=== PATIENT | male | born 1950 | race Caucasian/White ===

== ENCOUNTER 2017-08-21 12:00 | Inpatient (IN) | payer OTHER ==
[2017-08-21] MEDS: TORADOL 30 MG VIAL IVP PRN (14:28)
[2017-08-21] MEDS: SOLU-Medrol 40 MG VIAL IVP SCH ×2 (14:28→21:00)
[2017-08-21 14:31] LABS: BASOPHILS # (AUTO) 0.1 X10^3/uL (0.0-0.1); BASOPHILS % (AUTO) 0.4 % (0.2-1.0); EOSINOPHILS % (AUTO) 0.2 % (0.9-2.9); HEMATOCRIT 45.3 % (42.0-54.0); HEMOGLOBIN 16.1 g/dL (13.5-18.0); LYMPHOCYTES % (AUTO) 5.7 % (21.0-51.0); MEAN CORPUSCULAR HEMOGLOBIN 33.3 pg (27.0-34.0); MEAN CORPUSCULAR HGB CONC 35.7 g/dL (33.0-35.0); MEAN CORPUSCULAR VOLUME 93.3 fL (80.0-100.0); MEAN PLATELET VOLUME 7.1 fL (7.4-11.0); MONOCYTES # (AUTO) 0.9 x10^3/uL (0.3-0.8); MONOCYTES % (AUTO) 5.1 % (0.0-13.0); NEUTROPHILS # (AUTO) 15.6 x10^3/uL (2.2-4.8); NEUTROPHILS % (AUTO) 88.6 % (42.0-75.0); PLATELET COUNT 319 X10^3/uL (150.0-450.0); RED BLOOD COUNT 4.85 X10^6/uL (4.7-6.0); WHITE BLOOD COUNT 17.6 X10^3/uL (3.6-10.0)
[2017-08-21 15:09] LABS: ALANINE AMINOTRANSFERASE 63 Units/L (12-78); ALBUMIN 3.2 g/dL (3.4-5.0); ALKALINE PHOSPHATASE 44 Units/L (46-116); ASPARTATE AMINO TRANSFERASE 24 Units/L (15-37); BLOOD UREA NITROGEN 36 mg/dL (7-18); CALCIUM 8.8 mg/dL (8.5-10.1); CARBON DIOXIDE 30.4 mmol/L (21-32); CHLORIDE 99 mmol/L (98-107); COR CA(FOR HYPOALB) 9.4 mg/dL (8.5-10.1); COR NA(FOR HYPERGLY) 138 mmol/L (136-145); CREATININE 1.32 mg/dL (0.70-1.30); FREE T4 (FREE THYROXINE) 1.17 ng/dL (0.76-1.46); SODIUM 135 mmol/L (136-145); eGFR BLACK RACES > 60 (>60); eGFR NON BLACK RACES 57 (>60)
--- NOTE | 2017-08-21 15:34 | RAD ---
Examination: AP and lateral chest History: Pain, prostate cancer Comparison reference: None Findings: Normal heart size, clear lungs and pleural spaces. There is no evidence for CHF, pneumonia or metastatic disease. Impression: No acute chest abnormality demonstrated. Reported By:
[2017-08-21 15:46] LABS: TSH (3RD GENERATION) 0.868 uIU/mL (0.358-3.74)
--- NOTE | 2017-08-21 15:50 | CT ---
HISTORY: Back pain, right radiculopathy Study: CT lumbar spine without contrast Comparison: None Technique: Axial noncontrast images with coronal and sagittal reformats. Dose reduction procedures we re used with mA/kv adjusted for body size. Findings: The alignment is normal. The vertebral bodies are of average height. No compression fractures are ulysses ntified. The pedicles, spinous processes, and posterior elements are intact with the exception of karo ateral spondylolysis at L5 without significant spondylolisthesis. The SI joints and sacrum as visuali zed are intact. The disc levels are as follows. L1-2 level: No evidence for compressive disc disease. The neural foramina are patent. The joints are normal. L2-3 level: No evidence for compressive disc disease. The neural foramina are patent. The joints are normal. L3-4 level: Mild concentric disc bulging contributes along with mild facet arthropathy to mild latera l recess narrowing bilaterally. L4-5 level: There is mild concentric disc bulging present. However it extends somewhat more to the ri ght than the left where it contributes to foraminal and lateral recess narrowing of a moderate degree . There is mild lateral recess narrowing on the left. L5-S1 level: There is bilateral spondylolysis without significant spondylolisthesis. There is concent sarina disc bulging which contributes along with spondylitic change to lateral recess and foraminal narr owing bilaterally. IMPRESSION: As above Reported By:
[2017-08-21 16:10] LABS: ERYTHROCYTE SEDIMENTATION RATE 18 MM/HOUR (0-15)
[2017-08-21 16:25] VITALS: BMI 30.8
[2017-08-21] MEDS: DILAUDID INJ IVP PRN (16:30)
[2017-08-21 16:49] LABS: TOTAL PSA < 0.13 ng/mL (0.13-4.0)
[2017-08-21] MEDS: COLACE CAP 100 MG PO SCH (21:00)
[2017-08-21] MEDS: MILK OF MAGNESIA PO SCH (21:00)
[2017-08-22] MEDS: DILAUDID INJ IVP PRN ×5 (03:48→21:15)
[2017-08-22 04:59] LABS: ALANINE AMINOTRANSFERASE 55 Units/L (12-78); ALBUMIN 3.1 g/dL (3.4-5.0); ALKALINE PHOSPHATASE 41 Units/L (46-116); ASPARTATE AMINO TRANSFERASE 19 Units/L (15-37); BLOOD UREA NITROGEN 37 mg/dL (7-18); CALCIUM 8.5 mg/dL (8.5-10.1); CARBON DIOXIDE 28.2 mmol/L (21-32); CHLORIDE 98 mmol/L (98-107); COR CA(FOR HYPOALB) 9.2 mg/dL (8.5-10.1); COR NA(FOR HYPERGLY) 141 mmol/L (136-145); CREATININE 1.19 mg/dL (0.70-1.30); SODIUM 137 mmol/L (136-145); TOTAL PROTEIN 6.8 g/dL (6.4-8.2); eGFR BLACK RACES > 60 (>60); eGFR NON BLACK RACES > 60 (>60)
[2017-08-22 05:15] LABS: BASOPHILS % (AUTO) 0.2 % (0.2-1.0); HEMATOCRIT 44.8 % (42.0-54.0); HEMOGLOBIN 15.6 g/dL (13.5-18.0); LYMPHOCYTES # (AUTO) 0.8 X10^3/uL (1.3-2.9); LYMPHOCYTES % (AUTO) 4.2 % (21.0-51.0); MEAN CORPUSCULAR HEMOGLOBIN 33.2 pg (27.0-34.0); MEAN CORPUSCULAR HGB CONC 34.9 g/dL (33.0-35.0); MEAN CORPUSCULAR VOLUME 94.9 fL (80.0-100.0); MEAN PLATELET VOLUME 7.6 fL (7.4-11.0); MONOCYTES # (AUTO) 0.2 x10^3/uL (0.3-0.8); NEUTROPHILS # (AUTO) 18.1 x10^3/uL (2.2-4.8); NEUTROPHILS % (AUTO) 94.6 % (42.0-75.0); PLATELET COUNT 327 X10^3/uL (150.0-450.0); RED BLOOD COUNT 4.71 X10^6/uL (4.7-6.0); RED CELL DISTRIBUTION WIDTH 12.9 % (11.6-16.5); WHITE BLOOD COUNT 19.1 X10^3/uL (3.6-10.0)
[2017-08-22 05:32] LABS: BAND NEUTROPHILS % 4 % (0-10); PLATELET MORPHOLOGY COMMENT NORMAL (NORMAL)
[2017-08-22] MEDS: SOLU-Medrol 40 MG VIAL IVP SCH ×3 (06:27→21:04)
[2017-08-22] MEDS: LOPRESSOR TAB 50 MG PO SCH ×2 (09:14→21:03)
[2017-08-22] MEDS: ASPIRIN EC 81 MG PO SCH (09:14)
[2017-08-22] MEDS: HYDROCHLOROTHIAZIDE 25 MG TAB PO SCH (09:15)
--- NOTE | 2017-08-22 12:05 | CT ---
HISTORY: Low back pain radiating to the flank. Study: CT abdomen and pelvis without contrast Comparison: NONE Technique: Multiple axial images of the abdomen and pelvis were obtained from the lung bases to the pubic symphy sis without the administration of IV contrast. Automated exposure control (AEC) was utilized to adju st the MA and/or kV according to patient size. Findings: There is mild bibasilar atelectasis and trace bilateral pleural effusions. Abdomen: Please note that the lack of intravenous contrast limits sensitivity for detection of parenchymal les ions. The liver appears homogeneous without contour deforming masses. The gallbladder is present and nondi stended. There is no intrahepatic or extrahepatic bile duct dilatation. The spleen, pancreas, and b ilateral adrenal glands appear normal. Both kidneys are homogenous without contour deforming masses. No radiopaque calculi are noted. No hydronephrosis or perinephric fluid collection. The stomach is unremarkable. The small bowel and colon are nondistended. The appendix is not defini tively identified. No inflammatory changes are seen in the pericecal fat. Moderate stool is noted wit hin the sigmoid colon and rectum suggesting constipation. Diffuse calcifications are seen throughout the abdominal aorta.. There is no free fluid or free intr aperitoneal air.. Subtle haziness of the mesenteric fat is noted which is nonspecific. Pelvis: Urinary bladder is mildly distended.. Moderate stool noted within the sigmoid colon and rectum sugges ting constipation.. There is no free fluid in the pelvis. No acute osseous abnormalities are identified.. Lucencies within the T11 and T12 vertebral bodies dem onstrate some trabecular coarsening and may represent hemangiomas. These could be correlated with non emergent MRI for confirmation as clinically indicated. IMPRESSION: 1. Mild nonspecific haziness of the mesenteric fat is seen. This is nonspecific. Differential consid erations include mesenteric panniculitis, mild mesenteric edema, mesenteric lymphadenitis.. Clinical correlation is required. 2. Moderate stool within these colon rectum suggesting constipation. No evidence of bowel obstruction 3. Lucencies within the T11 and T12 vertebral bodies which likely represent hemangiomas. This can be confirmed with MRI on a nonemergent outpatient basis as clinically indicated 4. Mild distention of the urinary bladder. 5. Other findings as above Reported By:
[2017-08-22] MEDS ORDERED: DULCOLAX TAB EC 5 MG PO ONE (12:24)
[2017-08-22 13:35] LABS: BILIRUBIN,URINE NEGATIVE (NEGATIVE); BLOOD/HEMOGLOBIN,URINE NEGATIVE (NEGATIVE); GLUCOSE, URINE 4+ (NEGATIVE); KETONES,URINE NEGATIVE (NEGATIVE); LEUKOCYTE ESTERASE ,URINE NEGATIVE (NEGATIVE); NITRITES,URINE NEGATIVE (NEGATIVE); PROTEIN,URINE 2+ (NEGATIVE); UROBILINOGEN,URINE NORMAL (NORMAL)
[2017-08-22 13:39] LABS: APPEARANCE,URINE HAZY (CLEAR); COLOR,URINE YELLOW (YELLOW)
[2017-08-22 13:40] LABS: BACTERIA,URINE NEGATIVE /HPF (NEGATIVE); RBC,URINE 0-2 /HPF (NEGATIVE); SQUAMOUS EPITHELIAL CELL,UR NEGATIVE /HPF (NEGATIVE)
[2017-08-22] MEDS ORDERED: MOTRIN TAB 600 MG PO PRN (13:54)
[2017-08-22] MEDS ORDERED: ZOFRAN TAB 4 MG PO PRN (13:54)
[2017-08-22] MEDS: COZAAR PO SCH (21:03)
[2017-08-22] MEDS: COLACE CAP 100 MG PO SCH (21:03)
[2017-08-22] MEDS: MILK OF MAGNESIA PO SCH (21:03)
[2017-08-23] MEDS: DILAUDID INJ IVP PRN ×4 (02:21→17:30)
[2017-08-23] MEDS: VALIUM PO PRN (03:52)
[2017-08-23] MEDS: SOLU-Medrol 40 MG VIAL IVP SCH ×3 (05:54→21:07)
[2017-08-23 06:17] LABS: BASOPHILS % (AUTO) 0.2 % (0.2-1.0); HEMATOCRIT 40.9 % (42.0-54.0); HEMOGLOBIN 14.3 g/dL (13.5-18.0); LYMPHOCYTES # (AUTO) 0.7 X10^3/uL (1.3-2.9); LYMPHOCYTES % (AUTO) 3.2 % (21.0-51.0); MEAN CORPUSCULAR HEMOGLOBIN 33.2 pg (27.0-34.0); MEAN CORPUSCULAR VOLUME 94.8 fL (80.0-100.0); MEAN PLATELET VOLUME 7.6 fL (7.4-11.0); MONOCYTES # (AUTO) 0.4 x10^3/uL (0.3-0.8); MONOCYTES % (AUTO) 1.9 % (0.0-13.0); NEUTROPHILS # (AUTO) 20.9 x10^3/uL (2.2-4.8); NEUTROPHILS % (AUTO) 94.7 % (42.0-75.0); PLATELET COUNT 301 X10^3/uL (150.0-450.0); RED BLOOD COUNT 4.31 X10^6/uL (4.7-6.0); RED CELL DISTRIBUTION WIDTH 13.2 % (11.6-16.5); WHITE BLOOD COUNT 22.1 X10^3/uL (3.6-10.0)
[2017-08-23 06:51] LABS: ALANINE AMINOTRANSFERASE 59 Units/L (12-78); ALKALINE PHOSPHATASE 44 Units/L (46-116); ASPARTATE AMINO TRANSFERASE 24 Units/L (15-37); BLOOD UREA NITROGEN 39 mg/dL (7-18); CALCIUM 8.3 mg/dL (8.5-10.1); CARBON DIOXIDE 31.7 mmol/L (21-32); CHLORIDE 100 mmol/L (98-107); COR CA(FOR HYPOALB) 9.1 mg/dL (8.5-10.1); COR NA(FOR HYPERGLY) 142 mmol/L (136-145); SODIUM 138 mmol/L (136-145); TOTAL PROTEIN 6.5 g/dL (6.4-8.2); eGFR BLACK RACES > 60 (>60); eGFR NON BLACK RACES > 60 (>60)
[2017-08-23 07:01] LABS: PLATELET MORPHOLOGY COMMENT NORMAL (NORMAL)
--- NOTE | 2017-08-23 07:19 | RAD ---
HISTORY: Pain Study: Single-view of chest Comparison: August 21, 2017 Findings: The cardiac silhouette is unremarkable. No evidence of focal consolidation or effusion is identified. IMPRESSION: No evidence of acute disease within the chest. Reported By:
[2017-08-23] MEDS: ZyrTEC TAB 10 MG PO SCH (08:59)
[2017-08-23] MEDS: ZYLOPRIM PO SCH (09:00)
[2017-08-23] MEDS: HYDROCHLOROTHIAZIDE 25 MG TAB PO SCH (09:00)
[2017-08-23] MEDS: ASPIRIN EC 81 MG PO SCH (09:00)
[2017-08-23] MEDS: LOPRESSOR TAB 50 MG PO SCH ×2 (09:01→21:07)
[2017-08-23] MEDS: TORADOL 30 MG VIAL IVP PRN (15:46)
--- NOTE | 2017-08-23 16:59 | MRI ---
Indication: Back pain. Exam: MRI lumbar spine without contrast. Technique: Routine multiplanar multisequence imaging was performed through the lumbar spine without c ontrast. Findings: The lumbar vertebra are well aligned. There is moderate disc space narrowing throughout wit h diffuse moderate disc desiccation. The vertebral body height is well maintained throughout. There i s mild subluxation of L5 on S1 with no obvious pars defects seen. The conus is normal. There are foca l hemangiomas or fat in the T11 and T12 vertebra. There are mild hypertrophic changes of the facets t hroughout with no significant spinal stenosis. The paravertebral soft tissues are normal. There is a small focal extruded disc seen at L4-5 extending superiorly and laterally along the inferior aspect o f L4 and into the right neural foramen causing focal moderate narrowing of the right neural foramen. Impression: Moderate degenerative disc changes throughout with no acute bony abnormality . Mild subluxation of L5 on S1 which appears degenerative in etiology with no obvious pars defect. Focal small extruded disc at L4-5 lateralizing far to the right causing moderate neural foraminal chai rowing on the right . Mild osteoarthritic changes of the facets throughout with no significant spinal stenosis. Reported By:
[2017-08-23] MEDS: TORADOL 30 MG VIAL IVP SCH (21:04)
[2017-08-23] MEDS: COZAAR PO SCH (21:07)
[2017-08-23] MEDS: COLACE CAP 100 MG PO SCH (21:08)
[2017-08-23] MEDS: MILK OF MAGNESIA PO SCH (21:17)
[2017-08-24] MEDS: TORADOL 30 MG VIAL IVP SCH (02:59)
[2017-08-24] MEDS: SOLU-Medrol 40 MG VIAL IVP SCH ×2 (05:37→13:59)
[2017-08-24 06:24] LABS: BASOPHILS % (AUTO) 0.2 % (0.2-1.0); HEMATOCRIT 38.6 % (42.0-54.0); HEMOGLOBIN 13.3 g/dL (13.5-18.0); LYMPHOCYTES # (AUTO) 0.6 X10^3/uL (1.3-2.9); LYMPHOCYTES % (AUTO) 4.1 % (21.0-51.0); MEAN CORPUSCULAR HEMOGLOBIN 33.2 pg (27.0-34.0); MEAN CORPUSCULAR HGB CONC 34.6 g/dL (33.0-35.0); MEAN PLATELET VOLUME 7.4 fL (7.4-11.0); MONOCYTES # (AUTO) 0.4 x10^3/uL (0.3-0.8); MONOCYTES % (AUTO) 2.5 % (0.0-13.0); NEUTROPHILS # (AUTO) 14.1 x10^3/uL (2.2-4.8); NEUTROPHILS % (AUTO) 93.2 % (42.0-75.0); PLATELET COUNT 278 X10^3/uL (150.0-450.0); RED BLOOD COUNT 4.02 X10^6/uL (4.7-6.0); RED CELL DISTRIBUTION WIDTH 13.1 % (11.6-16.5); WHITE BLOOD COUNT 15.2 X10^3/uL (3.6-10.0)
[2017-08-24 06:33] LABS: ALANINE AMINOTRANSFERASE 81 Units/L (12-78); ALBUMIN 2.7 g/dL (3.4-5.0); ALKALINE PHOSPHATASE 43 Units/L (46-116); ASPARTATE AMINO TRANSFERASE 40 Units/L (15-37); BLOOD UREA NITROGEN 49 mg/dL (7-18); CALCIUM 7.9 mg/dL (8.5-10.1); CARBON DIOXIDE 27.3 mmol/L (21-32); CHLORIDE 102 mmol/L (98-107); COR CA(FOR HYPOALB) 8.9 mg/dL (8.5-10.1); COR NA(FOR HYPERGLY) 142 mmol/L (136-145); CREATININE 1.31 mg/dL (0.70-1.30); SODIUM 137 mmol/L (136-145); TOTAL PROTEIN 5.7 g/dL (6.4-8.2); eGFR BLACK RACES > 60 (>60); eGFR NON BLACK RACES 58 (>60)
[2017-08-24 07:03] LABS: PLATELET MORPHOLOGY COMMENT NORMAL (NORMAL)
[2017-08-24] MEDS: ZYLOPRIM PO SCH (07:59)
[2017-08-24] MEDS: ASPIRIN EC 81 MG PO SCH (07:59)
[2017-08-24] MEDS: LOPRESSOR TAB 50 MG PO SCH ×2 (07:59→21:20)
[2017-08-24] MEDS: HYDROCHLOROTHIAZIDE 25 MG TAB PO SCH (07:59)
[2017-08-24] MEDS: ZyrTEC TAB 10 MG PO SCH (07:59)
[2017-08-24] MEDS: DILAUDID INJ IVP PRN (07:59)
[2017-08-24] MEDS: VALIUM PO PRN (09:45)
[2017-08-24] MEDS: PERCOCET TAB 5/325 MG PO PRN ×3 (11:56→21:21)
--- NOTE | 2017-08-24 12:14 | RAD ---
HISTORY: Hip pain Study: Single view of the pelvis and one view of the right hip. Findings: A single frontal view of the pelvis demonstrates the pelvic ring to be intact. No acute fractures or dislocations. Sacroiliac joints are normal appearance. The femoral heads appear well seated in the a cetabulum. Dedicated views of the hip fails to demonstrate evidence for fracture or significant join t abnormality. Impression: 1. No acute abnormality of the hip. Reported By:
--- NOTE | 2017-08-24 12:15 | RAD ---
HISTORY: Knee pain Study: 3 views of the right knee Comparison: None Findings: There is lateral subluxation of the tibia. Joint space loss also identified. Extensive enthesophyte f ormation. No knee joint effusion. Soft tissues are unremarkable. IMPRESSION: 1. No acute abnormality of the right/left knee. 2. Joint space loss and lateral tibial subluxation. MRI could be obtained for evaluation of internal derangement. Reported By:
[2017-08-24] MEDS ORDERED: PATIENT'S HOME MEDICATION (Ondansetron [Zofran Odt] 4 MG) PO PRN (15:45)
[2017-08-24] MEDS ORDERED: MOTRIN TAB 600 MG PO PRN (15:45)
[2017-08-24] MEDS ORDERED: METOPROLOL TARTRATE PO SCH (15:45)
[2017-08-24] MEDS ORDERED: VALIUM PO PRN (15:45)
[2017-08-24] MEDS ORDERED: PATIENT'S HOME MEDICATION (Cetirizine Hcl [Zyrtec] 10 MG) PO SCH (15:45)
[2017-08-24] MEDS ORDERED: ZYLOPRIM PO SCH (16:00)
[2017-08-24] MEDS ORDERED: ASPIRIN EC 81 MG PO SCH (16:00)
[2017-08-24] MEDS ORDERED: HYDROCHLOROTHIAZIDE 25 MG TAB PO SCH (16:00)
[2017-08-24] MEDS ORDERED: PERCOCET TAB 5/325 MG PO PRN (16:16)
[2017-08-24] MEDS: PREDNISONE TAB 20 MG PO SCH (17:15)
[2017-08-24] MEDS ORDERED: LOSARTAN POTASSIUM 50 MG PO SCH (21:00)
[2017-08-24] MEDS: COZAAR PO SCH (21:20)
[2017-08-24] MEDS: COLACE CAP 100 MG PO SCH (21:20)
[2017-08-24] MEDS: MILK OF MAGNESIA PO SCH (21:20)
[2017-08-25 05:20] LABS: BASOPHILS % (AUTO) 0.2 % (0.2-1.0); HEMATOCRIT 39.9 % (42.0-54.0); HEMOGLOBIN 13.8 g/dL (13.5-18.0); LYMPHOCYTES # (AUTO) 0.8 X10^3/uL (1.3-2.9); MEAN CORPUSCULAR HEMOGLOBIN 32.9 pg (27.0-34.0); MEAN CORPUSCULAR HGB CONC 34.5 g/dL (33.0-35.0); MEAN CORPUSCULAR VOLUME 95.3 fL (80.0-100.0); MEAN PLATELET VOLUME 7.4 fL (7.4-11.0); MONOCYTES # (AUTO) 0.6 x10^3/uL (0.3-0.8); MONOCYTES % (AUTO) 4.3 % (0.0-13.0); NEUTROPHILS % (AUTO) 89.5 % (42.0-75.0); PLATELET COUNT 293 X10^3/uL (150.0-450.0); RED BLOOD COUNT 4.19 X10^6/uL (4.7-6.0); RED CELL DISTRIBUTION WIDTH 13.1 % (11.6-16.5); WHITE BLOOD COUNT 13.4 X10^3/uL (3.6-10.0)
[2017-08-25] MEDS: PERCOCET TAB 5/325 MG PO PRN ×3 (05:21→13:35)
[2017-08-25 05:40] LABS: ALANINE AMINOTRANSFERASE 85 Units/L (12-78); ALBUMIN 2.8 g/dL (3.4-5.0); ALKALINE PHOSPHATASE 37 Units/L (46-116); ASPARTATE AMINO TRANSFERASE 29 Units/L (15-37); BLOOD UREA NITROGEN 35 mg/dL (7-18); CALCIUM 8.1 mg/dL (8.5-10.1); CARBON DIOXIDE 27.2 mmol/L (21-32); CHLORIDE 104 mmol/L (98-107); COR CA(FOR HYPOALB) 9.1 mg/dL (8.5-10.1); COR NA(FOR HYPERGLY) 142 mmol/L (136-145); CREATININE 1.08 mg/dL (0.70-1.30); SODIUM 139 mmol/L (136-145); eGFR BLACK RACES > 60 (>60); eGFR NON BLACK RACES > 60 (>60)
[2017-08-25] MEDS: ZyrTEC TAB 10 MG PO SCH (08:53)
[2017-08-25] MEDS: ZYLOPRIM PO SCH (08:53)
[2017-08-25] MEDS: LOPRESSOR TAB 50 MG PO SCH (08:53)
[2017-08-25] MEDS: ASPIRIN EC 81 MG PO SCH (08:53)
[2017-08-25] MEDS: PREDNISONE TAB 20 MG PO SCH (08:53)
[2017-08-25] MEDS: HYDROCHLOROTHIAZIDE 25 MG TAB PO SCH (08:53)
[2017-08-25] MEDS ORDERED: ZyrTEC TAB 10 MG PO SCH (09:00)
[2017-08-25 12:06] VITALS: BP 155/70
== END 2017-08-25 15:15 | disposition home or self-care (01) | DRG 552 ==
LOC: EDBD 12:00 → MED/SURG 12:00 → OBSVTOIN 08-23 09:00
PROVIDERS: ADMIT Internal Medicine; ATTEND Internal Medicine
DX: M54.5 Low back pain (principal); K59.09 Other constipation; I10 Essential (primary) hypertension; M51.36 Other intervertebral disc degeneration, lumbar region; M51.16 Intervertebral disc disorders with radiculopathy, lumbar region; R73.09 Other abnormal glucose; M25.561 Pain in right knee; M25.551 Pain in right hip; E78.2 Mixed hyperlipidemia; D72.828 Other elevated white blood cell count; R94.4 Abnormal results of kidney function studies
CPT/HCPCS: 36415; 71020; 71045; 72131; 72148; 73501; 73560; 74176; 80053; 81001; 84153; 84439; 84443; 85025; 85652; 86140; 99217; 99218; 99231; A4222; G0378; J1885; J2920; J7506